=== PATIENT | male | born 1955 | race Caucasian/White ===

== ENCOUNTER 2017-06-21 | Inpatient (IN) | payer MEDICARE, MEDICAID ==
[2017-06-21] MEDS ORDERED: SODIUM CHLORIDE 0.9% 1000ML 1,000 ML IV ONE (00:38)
[2017-06-21 00:44] LABS: BASOPHILS % (AUTO) 1 % (0-3); EOSINOPHILS % (AUTO) 0 % (0-9); HEMATOCRIT 28 % (39-53); MEAN CORPUSCULAR HGB CONC 33.3 gm/dl (32.0-36.0); MONOCYTES % (AUTO) 8.6 % (0-12); NEUTROPHILS % (AUTO) 67.5 % (37-80)
[2017-06-21 00:51] LABS: MEAN CORPUSCULAR VOLUME 72 fL (80-100)
[2017-06-21 00:59] LABS: ALBUMIN 2.5 gm/dl (3.4-5.0); ALT 15 IU/L (14-63); CALCIUM 8.6 mg/dl (8.5-10.1); GLOM FILT RATE 72 mL/min (>60); POTASSIUM 4.8 mMol/L (3.5-5.1); SODIUM 143 mMol/L (136-145)
[2017-06-21 01:09] LABS: ANISOCYTOSIS MOD AMT
[2017-06-21 01:22] LABS: APPEARANCE,URINE Cloudy; BILIRUBIN,URINE NEGATIVE (NEGATIVE); COLOR,URINE Light yellow; GLUCOSE, URINE (UA) TRACE (NEGATIVE); KETONES,URINE NEGATIVE (NEGATIVE); LEUKOCYTE ESTERASE ,URINE 3+ (NEGATIVE); NITRATE,URINE POSITIVE (NEGATIVE); OCCULT BLOOD,URINE 3+ (NEG-TRACE); PH,URINE 5.5; UROBILINOGEN,URINE 0.2 (0.2-1.0 EU)
[2017-06-21 01:27] LABS: WBC,URINE TNTC (0-5AV/HPF)
[2017-06-21] MEDS ORDERED: CEFTRIAXONE 1 GM PDS ONE ×2 (01:27→13:25)
[2017-06-21] MEDS ORDERED: LORAZEPAM 0.5 MG TAB PO PRN (01:43)
[2017-06-21] MEDS ORDERED: SODIUM CHLORIDE 0.45% 1000 ML 1,000 ML IV SCH (01:45)
[2017-06-21] MEDS ORDERED: HALOPERIDOL LACTATE 5 MG/ML SOL IV PRN (01:51)
[2017-06-21] MEDS: CEFTRIAXONE 1 GM PDS 1 GM in SODIUM CHLORIDE 0.9% 100 ML 100 ML IV SCH ×2 (01:55→13:29)
[2017-06-21] MEDS: NOVOLOG FLEXPEN SC SCH ×4 (08:52→21:18)
[2017-06-21] MEDS: INSULIN GLARGINE, RECOMBINAN 100 U/ML SOL SC SCH (08:52)
[2017-06-21] MEDS: ACETAMINOPHEN 500 MG 500 MG TAB PO SCH ×3 (08:55→21:19)
[2017-06-21] MEDS ORDERED: ENOXAPARIN 30 MG SOL SC SCH (09:00)
[2017-06-21] MEDS ORDERED: ASPIRIN 81 MG CHEWABLE CTB PO SCH (09:00)
[2017-06-21] MEDS ORDERED: ACETAMINOPHEN 500 MG 500 MG TAB PO SCH (09:00)
[2017-06-21] MEDS ORDERED: SODIUM CHLORIDE 0.9% 100 ML 100 ML IV ONE ×2 (13:24→13:25)
[2017-06-21] MEDS: SODIUM CHLORIDE 0.9% FLUSH 10 ML SOL IV SCH ×2 (13:30→21:18)
[2017-06-21] MEDS: OLANZAPINE 2.5 MG TAB PO SCH (21:19)
[2017-06-22] MEDS ORDERED: CEFTRIAXONE 1 GM PDS ONE ×2 (00:30→13:27)
[2017-06-22] MEDS ORDERED: SODIUM CHLORIDE 0.9% 100 ML 100 ML IV ONE ×2 (00:30→13:27)
[2017-06-22] MEDS: CEFTRIAXONE 1 GM PDS 1 GM in SODIUM CHLORIDE 0.9% 100 ML 100 ML IV SCH ×2 (01:21→13:32)
[2017-06-22] MEDS: SODIUM CHLORIDE 0.9% FLUSH 10 ML SOL IV SCH ×3 (04:32→20:53)
[2017-06-22] MEDS: NOVOLOG FLEXPEN SC SCH ×4 (06:13→20:52)
[2017-06-22 07:03] LABS: CALCIUM 8.4 mg/dl (8.5-10.1); POTASSIUM 4.1 mMol/L (3.5-5.1)
[2017-06-22 07:27] LABS: BASOPHILS % (AUTO) 1 % (0-3); EOSINOPHILS % (AUTO) 0 % (0-9); HEMATOCRIT 27 % (39-53); MEAN CORPUSCULAR HGB CONC 34.5 gm/dl (32.0-36.0); MONOCYTES % (AUTO) 6.7 % (0-12); NEUTROPHILS % (AUTO) 65.5 % (37-80)
[2017-06-22 07:55] LABS: MEAN CORPUSCULAR VOLUME 71 fL (80-100)
[2017-06-22 07:56] LABS: ANISOCYTOSIS MOD AMT
[2017-06-22] MEDS: INSULIN GLARGINE, RECOMBINAN 100 U/ML SOL SC SCH (08:54)
[2017-06-22] MEDS: ACETAMINOPHEN 500 MG 500 MG TAB PO SCH ×3 (08:54→20:52)
[2017-06-22] MEDS: MIDODRINE HCL 2.5 MG TAB PO SCH ×2 (11:48→17:22)
[2017-06-22] MEDS: OLANZAPINE 2.5 MG TAB PO SCH (20:52)
[2017-06-23] MEDS ORDERED: CEFTRIAXONE 1 GM PDS ONE (00:16)
[2017-06-23] MEDS ORDERED: SODIUM CHLORIDE 0.9% 100 ML 100 ML IV ONE (00:16)
[2017-06-23] MEDS: MIDODRINE HCL 2.5 MG TAB PO SCH ×3 (01:21→09:53)
[2017-06-23] MEDS: CEFTRIAXONE 1 GM PDS 1 GM in SODIUM CHLORIDE 0.9% 100 ML 100 ML IV SCH ×2 (01:22→16:39)
[2017-06-23] MEDS: SODIUM CHLORIDE 0.9% FLUSH 10 ML SOL IV SCH ×3 (01:22→14:24)
[2017-06-23] MEDS: NOVOLOG FLEXPEN SC SCH ×2 (08:27→12:11)
[2017-06-23] MEDS: INSULIN GLARGINE, RECOMBINAN 100 U/ML SOL SC SCH (08:28)
[2017-06-23] MEDS: ACETAMINOPHEN 500 MG 500 MG TAB PO SCH ×2 (08:29→14:22)
[2017-06-23 10:13] VITALS: RESP 20
[2017-06-23] MEDS ORDERED: CEPHALEXIN 250 MG/5 ML BOTTLE PO SCH (14:00)
[2017-06-23 16:08] VITALS: BP 101/69; PULSE 82; TEMP 97.3; O2SAT 96
== END 2017-06-23 16:20 | DRG 690 ==
LOC: ED → ACUTE CARE 01:26
PROVIDERS: ADMIT Family Medicine; ATTEND Family Medicine
DX: N39.0 Urinary tract infection, site not specified (principal); F20.9 Schizophrenia, unspecified; E11.9 Type 2 diabetes mellitus without complications; D50.9 Iron deficiency anemia, unspecified; B95.61 Methicillin susceptible Staphylococcus aureus infection as the cause of diseases classified elsewhere; I95.1 Orthostatic hypotension; R53.1 Weakness; S00.93XA Contusion of unspecified part of head, initial encounter; Z91.81 History of falling; W19.XXXA Unspecified fall, initial encounter
CPT/HCPCS: 36415; 51798; 70450; 71010; 80048; 80053; 81001; 82962; 84484; 85025; 87077; 87088; 87186; 93005; 96365; 99222; 99285; J0696; J1630; J1817; J1650; J1815

== ENCOUNTER 2017-08-02 23:08 | Emergency (ER) | payer MEDICARE, MEDICAID ==
[2017-08-02] MEDS ORDERED: HALOPERIDOL LACTATE 5 MG/ML SOL ONE (23:17)
[2017-08-02] MEDS ORDERED: HALOPERIDOL LACTATE 5 MG/ML SOL IM ONE (23:18)
[2017-08-02] MEDS ORDERED: LORAZEPAM 2 MG/ML SOL IM ONE (23:54)
[2017-08-02] MEDS ORDERED: LORAZEPAM 2 MG/ML SOL ONE (23:56)
[2017-08-03 00:08] VITALS: RESP 24
[2017-08-03 01:20] VITALS: BP 106/68; PULSE 85; TEMP 98.5; O2SAT 100
== END 2017-08-03 01:25 | DRG 885 ==
LOC: ED 23:08
DX: F20.0 Paranoid schizophrenia (principal); E11.9 Type 2 diabetes mellitus without complications
CPT/HCPCS: 82962; 99284; J1630; J2060